=== PATIENT | female | born 1990 | race Caucasian/White ===

== ENCOUNTER → 2016-12-25 | Outpatient (CLI) | payer OTHER ==
--- NOTE | 2016-12-25 08:56 | RAD ---
Obstetrical ultrasound, 12/25/2016: History: , size and date discrepancy Transabdominal scans were obtained. There is a single intrauterine fetus in a breech orientation. The biparietal diameter measures 7.3 cm compatible with a gestational age of 29 weeks. This corresponds well to the other measurements and yields a sonographic EDC of 03/12/2017. The weight was estimated at 2 pounds and 14 ounces +/- 7 ounces. Normal activity and heart motion were seen. The heart rate was 136 bpm. No specific abnormality is detected. The placenta lies anteriorly with no evidence of a placenta previa. A normal amount of amniotic fluid is present. The MAYRA was calculated at 15.7. The cervical length is 3.8 cm. IMPRESSION: Single viable intrauterine fetus of 29 weeks gestational age as described above.
== END | disposition home or self-care (01) ==
LOC: US 07:37
PROVIDERS: ATTEND Obstetrics & Gynecology
DX: O09.93 Supervision of high risk pregnancy, unspecified, third trimester (principal); O26.843 Uterine size-date discrepancy, third trimester; Z3A.29 29 weeks gestation of pregnancy
CPT/HCPCS: 76805

== ENCOUNTER → 2017-01-12 | Outpatient (CLI) | payer OTHER ==
[2017-01-12 09:41] LABS: BASO # 0.1 x10^3/uL (0.0-0.2); BASO % 0 % (0-3); EOS # 0.1 x10^3/uL (0.0-0.7); EOS % 1 % (0-3); HEMATOCRIT 31.1 % (36.0-47.0); LYMPH # 2.9 x10^3/uL (1.0-4.8); LYMPH % 20 % (24-48); MEAN CORPUSCULAR HEMOGLOBIN 24 pg (25-35); MEAN CORPUSCULAR HGB CONC 32 g/dL (31-37); MEAN CORPUSCULAR VOLUME 75 fL (79-100); MONO # 0.8 x10^3/uL (0.0-1.1); MONO % 6 % (0-9); NEUT # 10.7 x10^3uL (1.8-7.7); NEUT % 73 % (31-73); PLATELET COUNT 221 x10^3/uL (140-400); RED BLOOD COUNT 4.17 x10^6/uL (3.50-5.40); RED CELL DISTRIBUTION WIDTH 14.9 % (11.5-14.5); WHITE BLOOD COUNT 14.5 x10^3/uL (4.0-11.0)
[2017-01-12 10:51] LABS: % BANDS 13 % (0-9); % LYMPHS 22 % (24-48); % METAS 2 % (0-0); % MONOS 4 % (0-10); % SEGS 59 % (35-66)
[2017-01-12 10:55] LABS: ANISOCYTOSIS SLIGHT; HYPOCHROMIA SLIGHT; MICROCYTOSIS SLIGHT; PLATELET CLUMP PRESENT; PLT ESTIMATE ADEQUATE (ADEQUATE); POLYCHROMASIA SLIGHT; TOXIC GRANULATION SLIGHT
[2017-01-12 23:09] LABS: RUBELLA IGG ANTIBODY 7.24 index (Immune >0.99)
== END | disposition home or self-care (01) ==
LOC: LAB 08:04
PROVIDERS: ATTEND Obstetrics & Gynecology
DX: O09.90 Supervision of high risk pregnancy, unspecified, unspecified trimester (principal); Z3A.00 Weeks of gestation of pregnancy not specified
CPT/HCPCS: 36415; 82950; 85007; 85027; 86592; 86593; 86703; 86762; 86850; 86900; 86901; 87340

== ENCOUNTER → 2017-01-12 | Outpatient (CLI) | payer OTHER ==
[2017-01-12 09:21] LABS: ALBUMIN 2.4 g/dL (3.4-5.0); ALBUMIN/GLOBULIN RATIO 0.6 (1.0-1.7); CALCIUM 8.5 mg/dL (8.5-10.1); CREATININE 0.6 mg/dL (0.6-1.0); GFR 122.8; POTASSIUM 4.3 mmol/L (3.5-5.1); TOTAL BILIRUBIN 0.2 mg/dL (0.2-1.0); TOTAL PROTEIN 6.7 g/dL (6.4-8.2)
== END | disposition home or self-care (01) ==
LOC: LAB 08:08
PROVIDERS: ATTEND Internal Medicine Cardiovascular Disease
DX: R01.1 Cardiac murmur, unspecified (principal)
CPT/HCPCS: 36415; 80053

== ENCOUNTER → 2017-01-16 | Outpatient (CLI) | payer OTHER ==
--- NOTE | 2017-01-16 17:13 | CARD ---
APPROVED REPORT EXAM: Two-dimensional and M-mode echocardiogram with Doppler and color Doppler. Other Information Quality : Average Rhythm : NSR INDICATION Murmur 2D DIMENSIONS RVDd2.7 (2.9-3.5cm)Left Atrium(2D)3.0 (1.6-4.0cm) IVSd0.8 (0.7-1.1cm)Aortic Root(2D)2.2 (2.0-3.7cm) LVDd4.1 (3.9-5.9cm)LVOT Diameter2.0 (1.8-2.4cm) PWd0.8 (0.7-1.1cm)LVDs2.3 (2.5-4.0cm) SV56.7 mlLVEF(%)64.6 (>50%) Aortic Valve AoV Peak Honorio.147.9cm/sAoV VTI31.6cm AO Peak GR.8.8mmHgLVOT Peak Honorio.114.3cm/s LVOT VTI 21.35cmAO Mean GR.5mmHg KHADIJAH (VMAX)2.39oz2LGJ (VTI)2.06cm2 Mitral Valve MV E Kwwwablw88.7cm/sMV E Peak Gr.3mmHg MV DECEL [id number] A Tnqsuigz42.9cm/s MV E Mean Gr.1mmHgMV KMS79xj E/A Ratio1.6MV A [id number] MVA (PHT)3.16cm2 Tricuspid Valve TR P. Pmmfwkkk975hl/sRAP MRKGRNGO7igAd TR Peak Gr.33xlMqJZKP10mlWl LEFT VENTRICLE The left ventricle is normal size. There is normal left ventricular wall thickness. Left ventricle sy stolic function is normal. The Ejection Fraction is 60-65%. There is normal LV segmental wall motion. The left ventricular diastolic function and filling is normal for age. There is no ventricular septa l defect visualized. RIGHT VENTRICLE The right ventricle is normal size. The right ventricular systolic function is normal. ATRIA The left atrium size is normal. The right atrium size is normal. The interatrial septum is intact wit h no evidence for an atrial septal defect or patent foramen ovale as noted on 2-D or Doppler imaging. AORTIC VALVE The aortic valve is normal in structure and function. The aortic valve is trileaflet. Doppler and Col or Flow revealed no significant aortic regurgitation. There is no significant aortic valvular stenosi s. MITRAL VALVE The mitral valve is normal in structure and function. There is no mitral valve stenosis. Doppler and Color Flow revealed trace mitral regurgitation. TRICUSPID VALVE The tricuspid valve is normal in structure and function. Doppler and Color Flow revealed trace tricus pid regurgitation. The PA pressure was estimated at 21 mmHg. There is no tricuspid valve stenosis. PULMONIC VALVE The pulmonic valve is not well visualized. Doppler and Color Flow revealed no pulmonic valvular regur gitation. There is no pulmonic valvular stenosis. GREAT VESSELS The aortic root is normal in size. The ascending aorta is normal in size. Pulmonary veins not recorde d. The IVC is normal in size and collapses >50% with inspiration. PERICARDIAL EFFUSION There is no evidence of significant pericardial effusion. Critical Notification Critical Value: No <Conclusion> Left ventricle systolic function is normal. The Ejection Fraction is 60-65%. There is normal LV segmental wall motion.
== END | disposition home or self-care (01) ==
LOC: ECHO 14:01
PROVIDERS: ATTEND Internal Medicine Cardiovascular Disease
DX: I07.1 Rheumatic tricuspid insufficiency (principal)
CPT/HCPCS: 93306